=== PATIENT | male | born 1960 | race Caucasian/White ===

== ENCOUNTER 2020-12-07 20:48 | Emergency (ER) | payer OTHER, SELFPAY ==
--- NOTE | ~2020-12-07 | XR_ITS ---
EXAMINATION: XR toe 2nd LT min 2V DATE: 12/07/2020 21:37 INDICATION: Pain at the left second toe with open wound at the tuft. TECHNIQUE: Dorsal plantar, lateral and 2 oblique views of the left second were obtained. COMPARISON: None FINDINGS: Alignment is normal. No fracture. Polyarticular osteoarthritis, moderate severity at the fourth proxi mal and second-fifth distal interphalangeal joints and mild at the remaining interphalangeal joints a nd the first metatarsophalangeal joint. Lytic lesion at the medial head of the second middle phalanx with differential including degenerative subchondral cyst or erosion which could be due to inflammato ry arthritis, gout or osteomyelitis. This appears however remote from an apparent skin ulceration at the lateral tip of the second toe. There is diffuse soft tissue swelling about the toe. Couple tiny c alcific densities project dorsal to the distal interphalangeal joint. IMPRESSION: Lytic lesion at the medial head of the second middle phalanx with differential including degenerative subchondral cyst related to moderate osteoarthritis at the distal interphalangeal joint, erosion related to gout or inflammatory arthritis or osteomyelitis. The appearance, location remote from the apparent ulceration and the presence of tiny dystrophic calcifications in the adjacent soft tissues favors gout. Reviewed, dictated and finalized at location A. IMPRESSION: Lytic lesion at the medial head of the second middle phalanx with d ifferential including degenerative subchondral cyst related to moderate osteoar thritis at the distal interphalangeal joint, erosion related to gout or inflamm atory arthritis or osteomyelitis. The appearance, location remote from the appa rent ulceration and the presence of tiny dystrophic calcifications in the adjac ent soft tissues favors gout.
--- NOTE | 2020-12-07 21:07 | PC.NURSE ---
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
[2020-12-07 21:16] VITALS: BP 150/88; PULSE 88; RESP 20; TEMP 36.4; O2SAT 97
--- NOTE | 2020-12-07 21:44 | PC.NURSE ---
called [id number] for lab to come do draw
[2020-12-07 21:58] LABS: Basophils Absolute Auto 0.05 K/mm3 (0.00-0.10); Basophils Percent Auto 0.7 % (0.0-1.0); Eosinophils Absolute Auto 0.19 K/mm3 (0.02-0.50); Eosinophils Percent Auto 2.8 % (1.0-6.0); Hematocrit 39.2 % (40.0-54.0); Hemoglobin 12.7 g/dL (14.0-18.0); Immature Granulocyte Absolute 0.05 K/mm3 (0.00-0.00); Immature Granulocyte Percent A 0.7 % (0.0-0.0); Lymphocytes Absolute Auto 2.27 K/mm3 (1.10-4.50); Lymphocytes Percent Auto 33.4 % (18.0-42.0); Mean Corpuscular HGB Conc 32.4 g/dL (32.0-36.0); Mean Corpuscular Hemoglobin 32.2 pg (27.0-31.0); Mean Corpuscular Volume 99.5 fL (78.0-102.0); Mean Platelet Volume 9.6 fl (8.7-11.0); Monocytes Absolute Auto 0.58 K/mm3 (0.10-0.90); Monocytes Percent Auto 8.5 % (2.0-11.0); Neutrophils Absolute Auto 3.7 K/mm3 (1.7-7.2); Neutrophils Percent Auto 53.9 % (50.0-70.0); Platelet Count Result 184 K/mm3 (150-420); Red Blood Count 3.94 M/mm3 (4.70-6.10); Red Cell Distribution Width 13.3 % (11.6-14.4); White Blood Count 6.8 K/mm3 (4.8-10.8)
[2020-12-07 22:16] LABS: Alanine Aminotransferase 27 U/L (16-63); Albumin Level 3.5 g/dL (3.4-5.0); Alkaline Phosphatase 67 U/L (46-116); Anion Gap 8 mmol/L (8-16); Aspartate Amino Transferase 15 U/L (15-37); Bilirubin,Total 0.4 mg/dL (0.00-1.00); Blood Urea Nitrogen 31 mg/dL (7-18); Calcium 9.5 mg/dL (8.5-10.1); Carbon Dioxide 27 mmol/L (21-32); Chloride 103 mmol/L (98-108); Estimated CRCL calculation 79 ml/min; Estimated Glomerular Filt Rate 55; Glucose 182 mg/dL (70-99); Osmolality Calculated 297 mOsm/kg (285-295); Potassium 4.3 mmol/L (3.5-5.1); Sodium 138 mmol/L (136-145); Total Protein 6.8 g/dL (6.4-8.2); Uric Acid 10.4 mg/dL (3.5-7.2)
[2020-12-07 22:20] LABS: Lactic Acid Reflex 1.1 mmol/L (0.4-2.0)
--- NOTE | 2020-12-07 22:52 | ED.GENADULT ---
HPI - General Adult General Chief complaint: Unspecified Stated complaint: infection in toe on L foot Time Seen by Provider: 12/07/20 21:20 Source: patient and family Mode of arrival: ambulatory Limitations: no limitations History of Present Illness HPI narrative: Patient comes in with red swollen 2nd toe on left foot. This was noticed by the patient and severely painful 2 days ago, with a sharp pain. Pain has now resolved, but he comes in because of swelling in toe and erythema there. He has no swelling or erythema on his foot. This is confined to second toe on left foot. No other signs or symptoms. Related Data Allergies Allergy/AdvReac Type Severity Reaction Status Date / Time No Known Allergies Allergy Verified 12/07/20 21:07 Review of Systems Constitutional: Constitutional: Reports no additional constitutional complaints Eyes: Eyes: Reports no additional eye complaints ENT: Reports system reviewed and no additional complaints, except as documented Cardiovascular: Cardiovascular: Reports no additional cardiovascular complaints Respiratory: Respiratory: Reports no additional respiratory complaints Gastrointestinal: Gastrointestinal: Reports no additional gastrointestinal complaints Genitourinary: Genitourinary: Reports no additional male genitourinary complaints Musculoskeletal: Musculoskeletal: Reports no additional musculoskeletal complaints Integumentary/Breasts: Skin/Breast: Reports system reviewed and no additional complaints, except as docu Neurologic: Reports system reviewed and no additional complaints, except as documented Psychiatric: Psychiatric: Reports no additional psychiatric complaints Endocrine: Endocrine: Reports no additional endocrine complaints Hematologic/Lymphatic: Hematologic/Lymphatic: Reports no additional hematologic/lymphatic complaints Allergic/Immunologic: Allergic/Immunologic: Reports no additional allergic/immunologic complaints [facility] Past Medical History Medical History (Updated 12/08/20 @ 04:02 by Daniel Mahan MD) Asthma Atrial fibrillation Diabetes Gout Hypertension Myocardial infarct Pacemaker Surgical History Surgical History (Updated 12/08/20 @ 04:02 by Daniel Mahan MD) AICD (automatic cardioverter/defibrillator) present Family History Family History (Updated 12/08/20 @ 04:01 by Daniel Mahan MD) Other No significant family history Social History Social History Gender identity (if verbalized by the patient): Male Exam Const: General: cooperative, healthy appearing, well developed, alert, awake and Physically active Nutritional Appearance: obese Orientation/consciousness: oriented to person, oriented to place and oriented to time Limitations: no limitations HENMT: Head: normal to inspection Ears: hearing grossly normal bilaterally General nose exam: Normal external nose present Face and sinus: normal facial exam Mouth: Yes Normal oral and palatal mucosa present and Yes moist mucous membranes Eyes: General: appearance normal, both eyes and all related structures Conjunctivae: conjunctivae normal Sclera: sclerae normal Neck: Neck: normal visual inspection Lymphatic: no lymphadenopathy noted Chest: Chest palpation & inspection: normal inspection of the chest Resp: Effort & Inspection: normal respiratory effort and able to speak in complete sentences Auscultation: clear to auscultation bilaterally Cardio: Rate: regular rate Rhythm: regular rhythm Heart sounds: S1 normal heart sound present and S2 normal heart sound present GI: Inspection: normal to inspection, Pannus present, obesity and other (soft nontender) Skin: General skin exam: normal color Rashes: no rashes Other: swollen left 2nd toe, with erythema, Neuro: General: oriented to person Cranial nerves: Yes CN's II-XII intact bilaterally Cognition (Neuro): normal cognition Speech: normal speech Gait exam (Neuro): Normal gait present Motor exam (neuro): 5/5 mo
[2020-12-07] MEDS: cefTRIAXone 1 GM VIAL IM (22:53)
[2020-12-07 22:59] VITALS: BP 150/88; PULSE 80; RESP 18; TEMP 36.4; O2SAT 96
--- NOTE | 2020-12-07 23:15 | PC.NURSE ---
left toe was affected, charted right
== END 2020-12-07 23:13 | disposition home or self-care (01) ==
PROVIDERS: Emergency Provider Emergency Medicine
DX: L03.032 Cellulitis of left toe (principal)
CPT/HCPCS: 36415; 73660; 80053; 83605; 84550; 85025; 96372; 99283; J0696